=== PATIENT | female | born 1950 | race Caucasian/White ===

== ENCOUNTER → 2020-09-21 17:14 | Outpatient (CLI) | payer MEDICARE, SELFPAY ==
--- NOTE | ~2020-09-21 | MM_ITS ---
EXAMINATION: MM screening wolf BI w cat HISTORY: Screening mammogram TECHNIQUE: Craniocaudal and mediolateral oblique 3-D tomosynthesis images were obtained and synthetic 2-D images were generated. CAD analysis was submitted and interpreted. COMPARISON: 10/27/2017 BREAST PARENCHYMAL COMPOSITION: There are scattered areas of fibroglandular density. FINDINGS: RIGHT BREAST: There is no evidence of suspicious mass, calcification, or architectural distortion to suggest malignancy. There has been no significant interval change. LEFT BREAST: There is asymmetry in the posterior third of the outer breast on the craniocaudal view. IMPRESSION: 1. Left breast asymmetry 2. Additional mammographic views and possible breast ultrasound are recommended. BI-RADS Category 0: Incomplete: Needs additional imaging evaluation. Reviewed, dictated and finalized at location A. IMPRESSION: 1. Left breast asymmetry 2. Additional mammographic views and possible breast ultrasound are recommended . BI-RADS Category 0: Incomplete: Needs additional imaging evaluation.
== END ==
PROVIDERS: Visit Provider Obstetrics & Gynecology
DX: Z12.31 Encounter for screening mammogram for malignant neoplasm of breast (principal); R92.8 Other abnormal and inconclusive findings on diagnostic imaging of breast
CPT/HCPCS: 77063; 77067

== ENCOUNTER → 2020-11-14 09:29 | Outpatient (CLI) | payer MEDICARE, SELFPAY ==
--- NOTE | ~2020-11-14 | MMUS_ITS ---
EXAMINATION: MM diagnostic wolf LT w cat, US breast LT limited HISTORY: Asymmetry reported in posterior third of outer left breast on screening craniocaudal view of 09/21/2020 TECHNIQUE: Additional 3-D full-field ML and spot craniocaudal and rotated lateral craniocaudal tomosy nthesis images of the left breast were performed and synthetic 2-D images were generated. CAD analysi s was submitted and interpreted. High resolution upper outer and lower outer left breast ultrasound w as performed. COMPARISON: 09/21/2020 bilateral digital screening mammogram FINDINGS: MAMMOGRAPHIC FINDINGS: No suspicious reproducible mass or architectural distortion or any malignant calcification, skin thic kening or retraction is noted. ULTRASOUND: No suspicious mass or shadowing is detected. No cyst is identified. IMPRESSION: 1. No mammographic evidence of malignancy 2. Routine mammographic screening is recommended BI-RADS Category 1: Negative Reviewed, dictated and finalized at location A. IMPRESSION: 1. No mammographic evidence of malignancy 2. Routine mammographic screening is recommended BI-RADS Category 1: Negative
== END ==
PROVIDERS: Visit Provider Obstetrics & Gynecology
DX: R92.8 Other abnormal and inconclusive findings on diagnostic imaging of breast (principal)
CPT/HCPCS: 76642; 77061; 77065; G0279